=== PATIENT | female | born 1955 | race Native Hawaiian/Other Pacific Islander ===

== ENCOUNTER 2017-01-09 08:31 | Day surgery (SDC) | payer OTHER ==
--- NOTE | 2017-01-09 11:10 | NUR ---
PT STATED THAT HAS HAD FENTANYL BEFORE.
== END 2017-01-09 12:40 | disposition home or self-care (01) ==
LOC: OR 08:31
PROC: 0DBP8ZZ Excision of Rectum, Via Natural or Artificial Opening Endoscopic (ICD-10-PCS; principal; 2017-01-09)
DX: K62.1 Rectal polyp (principal); Z12.11 Encounter for screening for malignant neoplasm of colon
CPT/HCPCS: J2001; J2250; J2704; J3010

== ENCOUNTER 2017-09-26 13:25 | Outpatient (CLI) | payer OTHER | END 2017-09-26 19:24 | disposition home or self-care (01) | LOC: RAD 13:25 | DX: J01.01 Acute recurrent maxillary sinusitis (principal) ==

== ENCOUNTER 2018-02-19 10:31 | Outpatient (CLI) | payer OTHER | END 2018-02-19 23:14 | disposition home or self-care (01) | LOC: RAD 10:31 | DX: R51 Headache (principal) ==

== ENCOUNTER 2018-02-22 16:20 | Outpatient (CLI) | payer OTHER | END 2018-02-22 19:19 | disposition home or self-care (01) | LOC: CT 16:20 | DX: R51 Headache (principal) ==

== ENCOUNTER 2018-04-18 10:50 | Outpatient (CLI) | payer OTHER | END 2018-04-18 19:17 | disposition home or self-care (01) | LOC: MRI 10:50 | DX: M54.6 Pain in thoracic spine (principal); M99.02 Segmental and somatic dysfunction of thoracic region; M54.2 Cervicalgia ==

== ENCOUNTER 2018-07-02 07:47 | Outpatient (CLI) | payer OTHER ==
[2018-07-02 08:22] LABS: PLATELET COUNT 338 K/uL (152-353)
[2018-07-02 08:36] LABS: POTASSIUM 4.1 mmol/L (3.6-5.2)
== END 2018-07-02 21:28 | disposition home or self-care (01) ==
LOC: LABW 07:47
PROVIDERS: Internal Medicine
DX: K21.9 Gastro-esophageal reflux disease without esophagitis (principal); R45.82 Worries; J44.0 Chronic obstructive pulmonary disease with (acute) lower respiratory infection; E78.2 Mixed hyperlipidemia; M54.2 Cervicalgia; E55.9 Vitamin D deficiency, unspecified
CPT/HCPCS: 36415; 80053; 80061; 82306; 83036; 84443; 85027

== ENCOUNTER 2019-07-22 10:02 | Outpatient (CLI) | payer OTHER, MEDICARE | END 2019-07-22 20:18 | disposition home or self-care (01) | LOC: LABW 10:02 | DX: R45.82 Worries (principal); M54.32 Sciatica, left side; Z79.899 Other long term (current) drug therapy | CPT/HCPCS: 36415; 84439; 84443; 84480 ==